=== PATIENT | female | born 1995 | race Caucasian/White ===

== ENCOUNTER 2019-03-04 13:08 | Emergency (ER) | payer BC ==
[~2019-03-04] VITALS: Ht 167.6 cm; Wt 65.8 kg
[2019-03-04 13:13] VITALS: BP 113/75; Ht 167.6 cm; Wt 65.8 kg
[2019-03-04 14:07] LABS: BASOPHIL % 0.2 % (0-2); PLATELET COUNT 286 x10^3mcL (130-400); RED CELL DISTRIBUTION WIDTH 12.8 % (11.5-14.5)
[2019-03-04 14:13] LABS: CARBON DIOXIDE 30.9 mmol/L (21-32); CHLORIDE SERUM 103 mmol/L (98-107); CREATININE SERUM 0.7 mg/dL (0.6-1.0); GFR1 > 60 mL/min; GLUCOSE SERUM 93 mg/dL (74-106); POTASSIUM SERUM 4.3 mmol/L (3.5-5.1); SODIUM SERUM 139 mmol/L (136-145)
[2019-03-04 14:26] LABS: ALBUMIN 4.4 g/dL (3.4-5.0); ALKALINE PHOSPHATASE 45 U/L (46-116); ALT/SGPT 13 U/L (14-59); AST/SGOT 12 U/L (15-37); BILIRUBIN TOTAL 0.9 mg/dL (0.20-1.00); T4(THYROXINE) 8.1 ug/dL (4.7-13.3); TOTAL PROTEIN, SERUM 7.8 g/dL (6.4-8.2)
== END 2019-03-04 14:46 | disposition home or self-care (01) ==
LOC: ED 13:08
PROVIDERS: Emergency Medicine
DX: F41.9 Anxiety disorder, unspecified (principal); R63.4 Abnormal weight loss
CPT/HCPCS: 36415

== ENCOUNTER 2019-03-29 13:28 | Emergency (ER) | payer BC ==
[~2019-03-29] VITALS: Ht 167.6 cm; Wt 65.3 kg
[2019-03-29 13:32] VITALS: Ht 167.6 cm; Wt 65.3 kg
[2019-03-29 14:18] LABS: microscopic required? YES; urine erythrocyte NEGATIVE (NEGATIVE)
[2019-03-29 16:02] VITALS: BP 110/74
== END 2019-03-29 16:02 | disposition home or self-care (01) ==
LOC: ED 13:28
PROVIDERS: Emergency Medicine
DX: N93.9 Abnormal uterine and vaginal bleeding, unspecified (principal); F17.210 Nicotine dependence, cigarettes, uncomplicated; Z71.6 Tobacco abuse counseling; F41.9 Anxiety disorder, unspecified
CPT/HCPCS: 87491; 87591; 99406; J1885

== ENCOUNTER 2019-05-11 09:42 | Emergency (ER) | payer BC ==
[~2019-05-11] VITALS: Ht 167.6 cm; Wt 67.6 kg
[2019-05-11 09:44] VITALS: Ht 167.6 cm; Wt 67.6 kg
[2019-05-11 11:13] VITALS: BP 123/74
== END 2019-05-11 11:15 | disposition home or self-care (01) ==
LOC: ED 09:42
DX: F41.9 Anxiety disorder, unspecified (principal); M54.5 Low back pain; F17.210 Nicotine dependence, cigarettes, uncomplicated; Z76.0 Encounter for issue of repeat prescription
CPT/HCPCS: 99406

== ENCOUNTER 2019-07-22 21:44 | Emergency (ER) | payer SELFPAY ==
[~2019-07-22] VITALS: Ht 167.6 cm; Wt 66.2 kg
[2019-07-22 22:04] VITALS: Ht 167.6 cm; Wt 66.2 kg
[2019-07-23 01:18] VITALS: BP 133/54
== END 2019-07-23 01:18 | disposition home or self-care (01) ==
LOC: ED 21:44
DX: T18.9XXA Foreign body of alimentary tract, part unspecified, initial encounter (principal); X58.XXXA Exposure to other specified factors, initial encounter; Y93.89 Activity, other specified; Y92.89 Other specified places as the place of occurrence of the external cause; Y99.8 Other external cause status

== ENCOUNTER 2019-08-07 23:59 | Emergency (ER) | payer SELFPAY ==
[~2019-08-07] VITALS: Ht 165.1 cm; Wt 65.8 kg
[2019-08-08 00:02] VITALS: Ht 165.1 cm; Wt 65.8 kg
[2019-08-08 03:40] VITALS: BP 136/61
== END 2019-08-08 03:40 | disposition home or self-care (01) ==
LOC: ED 23:59
DX: R51 Headache (principal); J02.9 Acute pharyngitis, unspecified

== ENCOUNTER 2019-10-28 20:04 | Emergency (ER) | payer OTHER ==
[~2019-10-28] VITALS: Ht 167.6 cm; Wt 70.4 kg
[2019-10-28 20:51] LABS: BASOPHIL % 0.3 % (0-2); PLATELET COUNT 285 x10^3mcL (130-400)
[2019-10-28 21:11] LABS: CALCIUM 9.2 mg/dL (8.5-10.1); CARBON DIOXIDE 29.5 mmol/L (21-32); CHLORIDE SERUM 102 mmol/L (98-107); CREATININE SERUM 0.7 mg/dL (0.6-1.0); GFR1 > 60 mL/min; GLUCOSE SERUM 76 mg/dL (74-106); POTASSIUM SERUM 4.2 mmol/L (3.5-5.1); SODIUM SERUM 137 mmol/L (136-145)
[2019-10-28 21:17] LABS: ALBUMIN 4.3 g/dL (3.4-5.0); ALKALINE PHOSPHATASE 37 U/L (46-116); ALT/SGPT 17 U/L (14-59); AST/SGOT 14 U/L (15-37); BILIRUBIN TOTAL 0.5 mg/dL (0.20-1.00); TOTAL PROTEIN, SERUM 7.9 g/dL (6.4-8.2)
[2019-10-28 22:24] VITALS: BP 108/67
== END 2019-10-28 22:24 | disposition home or self-care (01) ==
LOC: ED 20:04
DX: S86.911A Strain of unspecified muscle(s) and tendon(s) at lower leg level, right leg, initial encounter (principal); X58.XXXA Exposure to other specified factors, initial encounter; Y93.89 Activity, other specified; Y92.89 Other specified places as the place of occurrence of the external cause; Y99.8 Other external cause status
CPT/HCPCS: 36415

== ENCOUNTER 2019-11-10 16:06 | Emergency (ER) | payer OTHER ==
[~2019-11-10] VITALS: Ht 167.6 cm; Wt 70.8 kg
[2019-11-10 16:16] VITALS: BP 127/76; Ht 167.6 cm; Wt 70.8 kg
== END 2019-11-10 16:54 | disposition home or self-care (01) ==
LOC: ED 16:06
DX: H60.91 Unspecified otitis externa, right ear (principal); K02.9 Dental caries, unspecified

== ENCOUNTER 2019-11-26 12:25 | Emergency (ER) | payer OTHER ==
[~2019-11-26] VITALS: Ht 167.6 cm; Wt 70.3 kg
[2019-11-26 12:28] VITALS: BP 123/84; Ht 167.6 cm; Wt 70.3 kg
== END 2019-11-26 12:59 | disposition home or self-care (01) ==
LOC: ED 12:25
DX: K08.89 Other specified disorders of teeth and supporting structures (principal)

== ENCOUNTER 2020-01-16 23:58 | Emergency (ER) | payer OTHER ==
[~2020-01-16] VITALS: Ht 167.6 cm; Wt 76.2 kg
[2020-01-17 00:07] VITALS: Ht 167.6 cm; Wt 76.2 kg
[2020-01-17 01:51] LABS: BASOPHIL % 0.4 % (0-2); PLATELET COUNT 264 x10^3mcL (130-400); RED CELL DISTRIBUTION WIDTH 13.1 % (11.5-14.5)
[2020-01-17 01:55] LABS: CALCIUM 9.1 mg/dL (8.5-10.1); CARBON DIOXIDE 30.9 mmol/L (21-32); CHLORIDE SERUM 100 mmol/L (98-107); CREATININE SERUM 0.7 mg/dL (0.6-1.0); GFR1 > 60 mL/min; GLUCOSE SERUM 98 mg/dL (74-106); POTASSIUM SERUM 4.7 mmol/L (3.5-5.1); SODIUM SERUM 136 mmol/L (136-145)
[2020-01-17 03:39] VITALS: BP 110/78
== END 2020-01-17 03:40 | disposition home or self-care (01) ==
LOC: ED 23:58
PROVIDERS: Student in an Organized Health Care Education/Training Program
DX: N39.0 Urinary tract infection, site not specified (principal); D72.829 Elevated white blood cell count, unspecified; R51 Headache; R11.2 Nausea with vomiting, unspecified
CPT/HCPCS: J0780

== ENCOUNTER 2020-02-10 13:47 | Emergency (ER) | payer OTHER ==
[~2020-02-10] VITALS: Ht 167.6 cm; Wt 71.2 kg
[2020-02-10 14:03] VITALS: Ht 167.6 cm; Wt 71.2 kg
[2020-02-10 17:43] VITALS: BP 102/71
== END 2020-02-10 17:43 | disposition home or self-care (01) ==
LOC: ED 13:47
DX: T18.108A Unspecified foreign body in esophagus causing other injury, initial encounter (principal); X58.XXXA Exposure to other specified factors, initial encounter; Y93.89 Activity, other specified; Y92.89 Other specified places as the place of occurrence of the external cause; Y99.8 Other external cause status

== ENCOUNTER 2020-03-11 21:23 | Emergency (ER) | payer OTHER, SELFPAY ==
[~2020-03-11] VITALS: Ht 165.1 cm; Wt 59.0 kg
[2020-03-11 21:29] VITALS: Ht 165.1 cm; Wt 59.0 kg
[2020-03-11 22:35] VITALS: BP 110/67
== END 2020-03-11 22:35 | disposition home or self-care (01) ==
LOC: ED 21:23
DX: J02.8 Acute pharyngitis due to other specified organisms (principal); K02.9 Dental caries, unspecified; Z20.828 Contact with and (suspected) exposure to other viral communicable diseases
CPT/HCPCS: U0003-CS

== ENCOUNTER 2020-03-21 22:07 | Emergency (ER) | payer OTHER, SELFPAY ==
[~2020-03-21] VITALS: Ht 167.6 cm; Wt 68.0 kg
[2020-03-21 22:13] VITALS: Ht 167.6 cm; Wt 68.0 kg
[2020-03-21 23:23] LABS: microscopic required? NO
[2020-03-21 23:29] LABS: UA SPECIFIC GRAVITY 1.025 (1.005-1.035); urine erythrocyte NEGATIVE (NEGATIVE)
[2020-03-22 00:02] VITALS: BP 112/72
== END 2020-03-22 00:02 | disposition home or self-care (01) ==
LOC: ED 22:07
PROVIDERS: Emergency Medicine
DX: R50.9 Fever, unspecified (principal); J34.89 Other specified disorders of nose and nasal sinuses; R05 Cough; R10.9 Unspecified abdominal pain; Z20.828 Contact with and (suspected) exposure to other viral communicable diseases; Z90.89 Acquired absence of other organs
CPT/HCPCS: U0003